=== PATIENT | female | born 1995 | race Two or more races ===

== ENCOUNTER 2022-11-20 15:07 | Outpatient (CLI) | payer OTHER | END 2022-11-20 15:15 | disposition home or self-care (01) | LOC: RAD 15:07 | PROVIDERS: ATTEND General Practice | DX: R06.02 Shortness of breath (principal); D86.9 Sarcoidosis, unspecified ==

== ENCOUNTER 2022-12-08 11:15 | Outpatient (CLI) | payer OTHER | END 2022-12-08 11:17 | disposition home or self-care (01) | LOC: SONOGRAMA 11:15 | PROVIDERS: ATTEND Internal Medicine Endocrinology, Diabetes & Metabolism | DX: E04.8 Other specified nontoxic goiter (principal) ==

== ENCOUNTER 2024-11-07 03:56 | Inpatient (IN) | payer OTHER ==
[~2024-11-07] VITALS: Ht 182.9 cm; Wt 81.2 kg
[2024-11-07] VITALS (11 sets, daily range): BP systolic 113–144; BP diastolic 71–107
[2024-11-07] MEDS ORDERED: RINGERS SOLUTION,LACTATED 1,000 ML IV SCH (04:00)
[2024-11-07] MEDS ORDERED: PRENATAL TABLE1 EAC1 PO (04:15)
[2024-11-07] MEDS ORDERED: TAPAZOLE5 MG PO (04:16)
[2024-11-07] MEDS ORDERED: MAGNESIUM200 MG PO (04:16)
[2024-11-07] MEDS ORDERED: CHLORHEXIDINE GLUCONATE 120 ML BOTTLE TOP ONE (04:24)
[2024-11-07] MEDS ORDERED: ERYTHROMYCIN BASE OPHT 1GM EACH TUBE OP ONE ×2 (04:24→06:00)
[2024-11-07] MEDS ORDERED: LIDOCAINE HCL 1% 10ML VIAL ONE (04:24)
[2024-11-07] MEDS ORDERED: OXYTOCIN 20 UNITS/1000ML RL PIGGYBAG IV ONE (04:24)
[2024-11-07 04:33] LABS: PH,URINE 6.5 (5.0-8.0); URINE APPEARANCE Clear; URINE BILIRRUBIN Negative (NEGATIVE); URINE BLOOD Small; URINE COLOR Yellow; URINE GLUCOSE Negative (NEGATIVE); URINE KETONE 15 (NEGATIVE); URINE LEUKOCYTE Trace; URINE NITRATE Negative; URINE PROTEIN Negative (NEGATIVE); URINE UROBILINOGEN 0.2 E.U./dl
[2024-11-07 04:34] LABS: URINE BACTERIA 46.5 uL (0.0-1933); URINE EPITHELIAL CELLS 6.3 uL (0.0-38.8); URINE RBC 3.8 uL (0.0-20.8); URINE WBC 24.6 uL (0.0-23.2)
[2024-11-07 04:38] LABS: URINE CAST 0.14 uL (0.0-1.40)
[2024-11-07 04:41] LABS: HEMATOCRIT 40.5 % (36.0-45.00); HEMOGLOBIN 14.1 g/dL (12.0-15.00); MEAN CELL VOLUME 89.3 fL (80.00-100.00); MEAN CORPUSCULAR HEMOGLOBIN 31.2 pg (27.00-32.0); MEAN CORPUSCULAR HGB CONC 34.9 g/dl (32.0-36.0); PLATELET COUNT 238 K/uL (150-450); RED BLOOD COUNT 4.53 M/uL (4.00-6.00); RED CELL DISTRIBUTION WIDTH 13.9 % (11.5-14.5)
[2024-11-07 04:48] LABS: INR 0.96; PARTIAL THROMBOPLASTIN TIME 27.5 SECONDS (22.0-34.0); PROTHROMBIN TIME 10.5 SECONDS (9.0-11.5)
[2024-11-07 04:56] LABS: ALBUMIN 3.1 gm/dL (3.4-5.0); BILIRUBIN TOTAL 0.41 mg/dL (0.3-1.2); CALCIUM 9.6 mg/dL (8.5-10.1); CREATININE SERUM 0.51 mg/dL (0.55-1.02); GFR 143.59; GLOBULINA 3.6 G/DL (2.4-3.5); POTASSIUM 4.45 mEq/L (3.5-5.1); TOTAL PROTEIN 6.7 gm/dL (6.4-8.2)
[2024-11-07] MEDS ORDERED: IBUprofen 400 MG TABLET PO PRN (05:30)
[2024-11-07] MEDS ORDERED: CHLORHEXIDINE GLUCONATE 120 ML BOTTLE TP SCH (05:30)
[2024-11-07] MEDS ORDERED: OXYTOCIN 1,000 ML IV ONE (05:30)
[2024-11-07] MEDS ORDERED: LIDOCAINE HCL 1% 10ML VIAL IJ ONE (06:00)
[2024-11-07] MEDS ORDERED: PNV,CALCIUM 72/IRON/FOLIC ACID 1 TAB TABLET PO SCH (09:00)
[2024-11-07] MEDS ORDERED: DOCUSATE SODIUM 100MG CAP PO SCH (09:00)
[2024-11-08] VITALS: BP 116/70
[2024-11-08 07:09] LABS: HEMATOCRIT 36.2 % (36.0-45.00); HEMOGLOBIN 12.1 g/dL (12.0-15.00); MEAN CELL VOLUME 91.5 fL (80.00-100.00); MEAN CORPUSCULAR HEMOGLOBIN 30.5 pg (27.00-32.0); MEAN CORPUSCULAR HGB CONC 33.4 g/dl (32.0-36.0); PLATELET COUNT 235 K/uL (150-450); RED BLOOD COUNT 3.96 M/uL (4.00-6.00); RED CELL DISTRIBUTION WIDTH 13.7 % (11.5-14.5)
[2024-11-08 08:47] VITALS: BP 115/71
[2024-11-09] VITALS: BP 130/80
[2024-11-09 08:48] VITALS: BP 137/78
== END 2024-11-09 12:38 | disposition home or self-care (01) | DRG 807 ==
LOC: OB/GYN 03:56 → LDR 03:56 → OB/GYN 05:50 → SURG 11-10 13:10
PROVIDERS: Obstetrics & Gynecology Gynecology; ADMIT Obstetrics & Gynecology; ATTEND Obstetrics & Gynecology
PROC: 10E0XZZ Delivery of Products of Conception, External Approach (ICD-10-PCS; principal; 2024-11-07)
PROC: 0HQ9XZZ Repair Perineum Skin, External Approach (ICD-10-PCS; 2024-11-07)
PROC: 0UQMXZZ Repair Vulva, External Approach (ICD-10-PCS; 2024-11-07)
PROC: 4A1HXCZ Monitoring of Products of Conception, Cardiac Rate, External Approach (ICD-10-PCS; 2024-11-07)
DX: O70.0 First degree perineal laceration during delivery (principal); O71.82 Other specified trauma to perineum and vulva; Z37.0 Single live birth; Z3A.39 39 weeks gestation of pregnancy

== ENCOUNTER 2025-03-08 11:05 | Outpatient (CLI) | payer OTHER ==
[~2025-03-08 11:05] MED LIST: MAGNESIUM200 MG PO; PRENATAL TABLE1 EAC1 PO; TAPAZOLE5 MG PO
== END 2025-03-08 11:12 | disposition home or self-care (01) ==
LOC: SONOGRAMA 11:05
PROVIDERS: ATTEND General Practice
DX: E05.10 Thyrotoxicosis with toxic single thyroid nodule without thyrotoxic crisis or storm (principal)